=== PATIENT | female | born 1990 ===

== ENCOUNTER 2017-08-18 20:28 | Inpatient (IN) | payer MEDICAID, SELFPAY ==
[2017-08-18 20:48] VITALS: BMI 36.0
[2017-08-18 22:02] LABS: RBC URINE 3 /hpf (0-3); URINE BACTERIA OCC (<OCC); URINE BILIRUBIN NEGATIVE (NEGATIVE); URINE BLOOD MODERATE (NEGATIVE); URINE COLOR STRAW (YELLOW); URINE GLUCOSE (UA) NEG (Normal); URINE KETONE NEGATIVE (NEGATIVE); URINE LEUKOCYTE ESTERASE NEG Leu/uL (Negative); URINE PROTEIN 30 mg/dL (NEGATIVE); URINE UROBILINOGEN 0.2-1.0 mg/dL (0.2-1.0); WBC URINE 2 /hpf (0-5)
[2017-08-18 23:13] VITALS: TEMP 98.4
[2017-08-18 23:23] LABS: BASO % 0.2 % (0.0-2.0); EOS # 0.1 K/uL (0.0-0.7); HEMATOCRIT 30.9 % (34.0-47.0); LYMPH # 1.6 K/uL (1.0-4.3); LYMPH % 19.4 % (20.0-40.0); MEAN CELL VOLUME 90.9 fl (81.0-99.0); MEAN CORPUSCULAR HEMOGLOBIN 29.2 pg (27.0-31.0); MEAN CORPUSCULAR HGB CONC 32.1 g/dL (33.0-37.0); MEAN PLATELET VOLUME 9.2 fl (7.2-11.7); MONO # 0.5 K/uL (0.0-0.8); NEUT % 73.4 % (50.0-75.0); RED CELL DISTRIBUTION WIDTH 14.7 % (11.5-14.5); WHITE BLOOD COUNT 8.2 K/uL (4.8-10.8)
[2017-08-18 23:31] LABS: ALB/GLOB RATIO 1.1 (1.0-2.1); ALKALINE PHOSPHATASE 158 U/L (38-126); ALT/SGPT 44 U/L (9-52); AST/SGOT 25 U/L (14-36); BILIRUBIN,TOTAL 0.3 mg/dl (0.2-1.3); BLOOD UREA NITROGEN 11 mg/dl (7-17); CALCIUM 9.1 mg/dL (8.4-10.2); CARBON DIOXIDE 18 mmol/L (22-30); CHLORIDE 108 mmol/L (98-107); GFR AFRICAN-AMERICAN > 60; GLUCOSE,RANDOM 104 mg/dL (65-105); POTASSIUM 3.6 MMOL/L (3.6-5.0); SODIUM 136 mmol/l (132-148); TOTAL PROTEIN 6.7 G/DL (6.3-8.2); URIC ACID 5.2 mg/Dl (2.2-7.5)
--- NOTE | 2017-08-19 01:56 | OBHP ---
Datetime: 08/18/2017 21:00 IP Adm Impression: Term, intrauterine ; No Active Labor; Intact Membranes IP Adm Impression Other: Elevated BP IP Admit Plan: Admit to unit Admit Comment, IP Provider: 27 yo at 40.2 weeks GA based on LMP 11/09/16 consistent with US on , EDC 08/16/17 presents with c/o lower abdominal discomfort and pressure since since this mornin g associated with vaginal spotting around 3 pm this afternoon. Denies LOF. Reports +FM and Ctx. Last ctx felt at 3 pm. Denies nausea, vomiting, dysuria, headache, dizziness, chest pain or dyspnea. Pt is GBS negative and all her 3rd trimerster labs are negative. Pt received Rhogam on 06/11/17. [facility], has appointment tomorrow at 1 pm. [facility] records rev'd PNL: O-, rh factor neg, rpr neg, hiv neg, rubella immune, hbsag neg, gbs neg, pap neg, gc/chl neg. 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 pmhx: anemia Pshx: denies Social hx: denies EtOH, smoking cigarettes or recreational drug use. Medications: iron pills, PNV Allergies: NKDA Assessment: 27 yo -IUP @ 40.2 weeks GA - induced HTN Plan: Admit to Labor and Delivery CBC CMP Uric acid Fibrinogen Type and Screen UA Pt was seen and examined with on-call OB hospitalist Dr. Elmira Finley, PGY1 OB Hospitalist on-call. with pGY1, I saw and examined this patinet. She stated that BP was also high last week. No MCDONNELL. no visual dist. Will admit to L_D. Elevated BP and preg dicussed with pt. She understands. Discussion about IOL, medicatoins, pain management, labor, and delivey discussed. Rh neg...Rhogam if indicated Extremities - PN: Normal Abdomen - PN: Normal Lungs - PN: Normal Heart - PN: Normal Neurologic - PN: Normal HEENT - PN: Normal General - PN: Normal Presentation-Admit: Vertex FHR - Baseline A Provider: 140s Membranes, Provider: Intact Comments, ACOG Physical Exam: Pelvic exam: close cervix w/ blood tinged mucus discharge Gestation - Est Wks by US: 40.2 weeks Pool Provider: Negative IP Hx Assessment: The History has been Reviewed and is Current Vital Signs Provider: Reviewed IP Chief Complaint: Vaginal bleeding; Maternal discomfort NICHD Variability Prov Fetus A: Moderate 6-25bpm NICHD Accel Fetus A IP Provider: 15X15 FHR Category Provider Fetus A: Category I Dilatation, Provider: 0 Effacement, Provider: 0 Genitourinary Exam: Normal
[2017-08-19] MEDS: Lactated Ringer's 1,000 ML IV SCH ×4 (09:35→16:40)
[2017-08-19] MEDS ORDERED: Oxytocin 30 units/LR 500ML 30 U/500 ML BAG IV ONE ×2 (09:46→16:00)
[2017-08-19] MEDS ORDERED: Oxytocin 30 UNITS in Sodium Chloride 0.9% 500 ML IV ONE ×2 (10:00→16:15)
--- NOTE | 2017-08-19 10:59 | OBPN ---
Datetime: 08/19/2017 10:19 IP Progress Impression: Normal progression of labor IP Procedures: Sterile Vag Exam; Ultrasound IP Progress Plan: Continue present management Pool Provider: Negative Membranes, Provider: Intact FHR - Baseline A Provider: 140 Gestation - Est Wks by US: 40.3 IP Progress Note Comment: 27 y/o F at 40.2 weeks GA, -induced HTN, admitted last nigh t for IOL. Cytotec was administered. Pt examined by bedside, on nitric oxide via facial mask, reports feeling well. Pt reports uterine contractions are more frequent, 5/10 pain intensity. FM +. Pt denie s LOF, CP, SOB, visual disturbances, headache or urinary complaints. - US by bedside performed: vertex presentation verified, pt tolerated well. Physical Exam: -Gen: Pt A_O, not in acute distress. -HEENT: normocephalix, atraumatic, EOMI. -Neck good ROM. -Pelvic: No pooling appreciated. Cervical dilation of 4 cm, effacement _75%. A/P 27 y/o F with IUP at 40.3 weeks GA, -induced HTN, with adequate progression of labor. - IV fluids - LR @ 125ml/hr- started - Continue Nitric Oxide PRN. - Will continue monitoring. Case discussed with Dr Becky Wilson PGY-1 OB attending addendum: Patient seen and examined by me. Agree with above assessment and plan with following clarification s and additions. O: 110-140/70-100s I: Gestational HTN: asymtomatic Latent Phase Labor- with good cervical change. S/P Cytotec x2(25mg/ 50mg) P:Expectant VD Will begin Pit when indicated. Pt advised she may have epidural prn NICHD Accel Fetus A IP Provider: 15X15 FHR Category Provider Fetus A: Category I NICHD Variability Prov Fetus A: Moderate 6-25bpm Dilatation, Provider: 5 Effacement, Provider: 75 Datetime: 08/18/2017 21:00 Presentation-Admit: Vertex Vital Signs Provider: Reviewed NICHWilly Decel Fetus A IP Provider: None
[2017-08-19] MEDS ORDERED: Bupivacaine HCl 0.25% PF (10 ml) Inj ONE (16:42)
[2017-08-19] MEDS ORDERED: Fentanyl/Bupivacaine HCl 250 ML EPI ONE (16:42)
[2017-08-19] MEDS ORDERED: Lidocaine 1% Inj (20ml) ONE (21:49)
[2017-08-19] MEDS ORDERED: Oxycodone/Acetaminophen 5/325 mg Tab PO PRN ×2 (23:11)
[2017-08-20] MEDS ORDERED: Oxycodone/Acetaminophen 5/325 mg Tab PO PRN ×2 (00:28)
[2017-08-20 07:49] LABS: HEMATOCRIT 25.3 % (34.0-47.0); MEAN CELL VOLUME 89.1 fl (81.0-99.0); MEAN CORPUSCULAR HEMOGLOBIN 30.4 pg (27.0-31.0); MEAN CORPUSCULAR HGB CONC 34.2 g/dL (33.0-37.0); RED CELL DISTRIBUTION WIDTH 15.1 % (11.5-14.5); WHITE BLOOD COUNT 10.4 K/uL (4.8-10.8)
--- NOTE | 2017-08-20 09:10 | OBDS ---
DELIVERY PERSONNEL Delivery Doctor: Silver Thomas MD Electronic Equipment Trades Worker: Ema Darnell RN Anesthesiologist: Geoffrey Trinidad MD Resident: Malia MATERNAL INFORMATION Delivery Anesthesia: Epidural Medications in Delivery: Oxytocin 30 units in 500 mL Estimated Blood Loss (ml): 250 Placenta Cultured: No Maternal Complications: None Provider Comments: of a viable male infant from cephalic presentation over the second degree pe rineal laceration. 's head delivered in a controlled manner. No nuchal cord was no noted. Infan t was bulb suctioned at the perineum and was crying spontaneously. was placed on mother stomac h. Cord was double calmped and cut by baby's father. Placenta was delived intact and spontanously w/ gentle cord tract and uterine massage. 3 vessel co rds were noted. IV fluids 1L plus Pitochin 20 units started immediately w/ delivery of placenta. Midl ine second degree perineal laceration was repaired with 2-0 and 3-0 vicryl. Cervix and vaginal inspec all for lacerations and non were noted. Male infants wt 9 lbs 2 oz and scores were 9/9. EBL 250 cc. LABOR SUMMARY EDC: 08/16/2017 00:00 No. Babies in Womb: 1 Attempted: No Labor Anesthesia: Epidural LABOR INFORMATION Reason for Induction: Gest. HTN/PreEclampsia/Eclampsia Onset of Labor: 08/19/2017 16:00 Complete Dilatation: 08/19/2017 21:00 Cervical Ripening Agents: Cytotec @ (Annotations: 50 mcg as per md order ) Oxytocin: Induction Group B Beta Strep: Negative Steroids Given: None Reason Steroids Not Administered: Not Applicable MEMBRANES Membranes Rupture Method: Spontaneous Rupture of Membranes: 08/19/2017 19:35 Length of Rupture (hrs): 2.78 Amniotic Fluid Color: Clear Amniotic Fluid Amount: Small Amniotic Fluid Odor: Normal STAGES OF LABOR Stage 1 hrs: 5 Stage 1 min: 0 Stage 2 hrs: 1 Stage 2 min: 22 Stage 3 hrs: 0 Stage 3 min: 11 Total Time in Labor hrs: 6 Total Time in Labor min: 33 VAGINAL DELIVERY Episiotomy: None Laceration Extension: Second Degree Laceration Type: Perineal Laceration Repair: Yes Laceration Repair Note: 2-0 and 3-0 vicryl Initial Vag Sponge Count: 5 Final Vag Sponge Count: 5 Initial Vag Sharps Count: 2 Final Vag Sharps Count: 2 Sponge Count Correct: Yes Sharps Count Correct: Yes BABY A INFORMATION Delivery Date/Time: 08/19/2017 22:22 Method of Delivery: Vaginal Born in Route : No : N/A Forceps: N/A Vacuum Extraction: N/A Shoulder Dystocia : No SHOULDER DYSTOCIA BABY A Delivery Date/Time: 08/19/2017 22:22 PRESENTATION/POSITION BABY A Presentation: Cephalic Cephalic Presentation: Vertex PLACENTA INFORMATION BABY A Placenta Delivery Time : 08/19/2017 22:33 Placenta Method of Delivery: Spontaneous Placenta Status: Delivered SCORES BABY A Heart Rate 1 min: >100 bpm Resp Effort 1 min: Good Cry Reflex Irritability 1 min: Cough or Sneeze or Pulls Away Muscle Tone 1 min: Active Motion Color 1 min: Body Morton, Extremities Blue SCORE 1 MIN: 9 Heart Rate 5 min: >100 bpm Resp Effort 5 min: Good Cry Reflex Irritability 5 min: Cough or Sneeze or Pulls Away Muscle Tone 5 min: Active Motion Color 5 min: Body Morton, Extremities Blue SCORE 5 MIN: 9 INFORMATION BABY A Gestational Age at Delivery: 41.2 Gestational Status: Term Infant Outcome : Liveborn Condition : Stable Sex: Male IDENTIFICATION/MEDS BABY A ID Band Number: [id number] ID Band Location: Left Leg; Left Arm WEIGHT/LENGTH BABY A Infant Birthweight (gms): 4145 Weight (lb): 9 Weight (oz): 2 CORD INFORMATION BABY A No. Cord Vessels: 3 Nuchal Cord : N/A Cord Blood Taken: Yes Suction: Mouth; Nose
--- NOTE | 2017-08-20 09:21 | OBPPN ---
Datetime: 08/20/2017 07:29 PP Pain Prov: Within normal limits PP Nausea Prov: Denies PP Flatus Prov: Yes PP BM Prov: No PP Heart Prov: Normal PP Lungs Prov: Normal PP Abdomen/Uterus Prov: Normal PP Lochia Prov: Normal PP Vulva/Perineum Prov: Normal PP CVA Tenderness Prov: Normal PP Extremities Prov: Normal PP Impression Prov: Normal progression PP Plan Prov: Continue present management PP Progress Note Prov: PPD #1 27 y/o now seen and examined at bedside this morning. No overnight events. Reports pain is c ontrolled with pain medications. Voiding freely w/ tinged blood noted.Pt reports passing gas per rect um but no BM yet. Ambulating well w/o dizziness. Lochia is similar to menses volume. Pt is breastfeed ing/bottle feeding w/o difficulty. Denies nausea, vomiting, fever, chills, chest pain or calf pain. Physical Exam: General: A_O, resting comfortably in bed, NAD HEENT: oral mucosa moist. Lungs: CTA B/L, no wheezing, rhonchi or rales CVS: RRR, S1, S2 ABD: ND, +BS, firm fundus @ umbilical level. Soft, appropriate TTP. EXT: no edema, negative Clemente's sign, Neuro/psych: AAOX3. assessment: 27 y/o now doing well on PDD 1 Plan: OOB w/ caution Regular diet Percocet and Ibuprofen for pain management Encourage and ambulatory Anticipate discharge tomorrow Sultan Finley, PGY1 The patient was seen with the resident I agree with note
--- NOTE | 2017-08-21 10:14 | OBPPN ---
Datetime: 08/21/2017 06:57 PP Pain Prov: Within normal limits PP Nausea Prov: Denies PP Flatus Prov: Yes PP BM Prov: Yes PP Heart Prov: Normal PP Lungs Prov: Normal PP Abdomen/Uterus Prov: Normal PP Lochia Prov: Normal PP Vulva/Perineum Prov: Normal PP CVA Tenderness Prov: Normal PP Extremities Prov: Normal PP Impression Prov: Normal progression PP Plan Prov: Discharge PP Progress Note Prov: PPD #2 27 y/o now seen and examined at bedside this morning. No overnight events. Ambulating well w /o dizziness. Reports pain is controlled with pain medications. Voiding freely w/o blood noted.Pt [place] d BM last night. Lochia is similar to menses volume. Pt is /bottle feeding w/o difficult y. Denies dyspnea, chest pain, dizziness, blurry vision, nausea, vomiting, fever, chills,or calf pain . Physical Exam: General: A_O, resting comfortably in bed, NAD HEENT: oral mucosa moist. Lungs: CTA B/L, no wheezing, rhonchi or rales CVS: RRR, S1, S2 ABD: ND, +BS, firm fundus @ umbilical level. Soft, appropriate TTP. EXT: no edema, negative Clemente's sign Neuro/psych: AAOX3. Assessment: 27 y/o now doing well on PDD 2 Anemia Plan: Discharge to home today PNV 1 PO qdaily Ibuprofen 600 mg 1 tab po q6h prn for moderate/severe pain Feosol 325 mg PO bid Senokot 8.6mg tabs po qhs. Encourage . Ambulation with caution,nothing per vaginal, no heavy lifting. Go to ER if excessive bleeding or experiencing fever, increased perineal or abdominal pain, breast problems or leg pain and swelling. Follow up at your clinic in 4-6 weeks. Sultan Finley, PGY1 Attending addendum: I saw and examined the patient at bedside this morning. I reviewed the resident note above and agr ee with findings and management. DC home today. f/u [facility] in 4-6wks. Jazmyne Anthony MD Vital Signs Provider PP: Reviewed; Within Normal Limits
--- NOTE | 2017-08-21 10:14 | OBDCSUM ---
Datetime: 08/21/2017 07:02 Discharged to, Provider: Home Follow up at, Provider: [facility] Disch Instr Activity: Normal activity Disch Instr Diet: Regular Discharge Instructions, Provider: Routine instructions given Discharge Diagnosis, Provider: Term Delivered Discharge Time: 08/21/2017 12:00 Follow up in weeks, Provider: Follow up with Jayleen Watts as discussed in 6-10 days Disch Referrals: None Contraception discussed, Prov: Yes Disch Activity Restrictions: No lifting; No sexual activity; Nothing in vagina - [place], tampon s, douche Discharge Comment, Provider: Take vitamin 1 tablet daily Take Ibuprofen 600 mg 1 tab every 6 hours as needed for for moderate/severe pain Take Feosol 325 mg two times daily. Take Senokot 8.6mg tabs at night Go to ER if excessive bleeding or experiencing fever, increased perineal or abdominal pain, breast problems or leg pain and swelling. Follow up with Jayleen Watts APN as discussed in 6-10 days. Attending addendum: I saw and examined the patient at bedside this morning. I reviewed the resident note above and agr ee with findings and management. DC home today. f/u [facility] in 4-6wks. Jazmyne Anthony MD Contraception after Delivery: Control Pill/Patch
[2017-08-22 21:12] VITALS: BP 122/78; PULSE 100; RESP 20; O2SAT 100
== END 2017-08-21 10:55 | disposition home or self-care (01) | DRG 775 ==
LOC: H.EROB2 20:28 → H.L&D 21:36 → H.OB/GYN 08-20 00:45
PROVIDERS: ADMIT Obstetrics & Gynecology; ATTEND Obstetrics & Gynecology
PROC: 4A1HXCZ Monitoring of Products of Conception, Cardiac Rate, External Approach (ICD-10-PCS; 2017-08-18)
PROC: 10E0XZZ Delivery of Products of Conception, External Approach (ICD-10-PCS; principal; 2017-08-19)
PROC: 0KQM0ZZ Repair Perineum Muscle, Open Approach (ICD-10-PCS; 2017-08-19)
PROC: 3E0P7VZ Introduction of Hormone into Female Reproductive, Via Natural or Artificial Opening (ICD-10-PCS; 2017-08-19)
PROC: 30233S1 Transfusion of Nonautologous Globulin into Peripheral Vein, Percutaneous Approach (ICD-10-PCS; 2017-08-20)
DX: O13.4 Gestational [pregnancy-induced] hypertension without significant proteinuria, complicating childbirth (principal); O36.0930 Maternal care for other rhesus isoimmunization, third trimester, not applicable or unspecified; D64.9 Anemia, unspecified; O99.02 Anemia complicating childbirth; O70.1 Second degree perineal laceration during delivery; O48.0 Post-term pregnancy; Z37.0 Single live birth; Z3A.40 40 weeks gestation of pregnancy

== ENCOUNTER 2019-01-12 15:44 | Emergency (ER) | payer MEDICAID ==
[2019-01-12 15:59] VITALS: BMI 34.7
[2019-01-12] MEDS: Lactated Ringer's 1,000 ML IV SCH ×2 (17:10→18:15)
--- NOTE | 2019-01-12 20:01 | OBDCSUM ---
Datetime: 01/12/2019 18:45 Discharged to, Provider: Home Follow up at, Provider: [facility] Disch Instr Activity: Normal activity Disch Instr Diet: Regular Discharge Diagnosis, Provider: David Labor - Undelivered Discharge Time: 01/05/2019 18:45 Follow up in weeks, Provider: 01/14/19 Disch Referrals: None
--- NOTE | 2019-01-12 20:01 | OBHP ---
Datetime: 01/12/2019 16:30 IP Adm Impression: Term, intrauterine ; No Active Labor; Intact Membranes IP Chief Complaint Other: prolonged monitoring IP Admit Plan: Observation/Evaluation Admit Comment, IP Provider: 28 YO with IUP at EGA 37.5 wks, EDC 01/28/19, sent for eval and m onitoring from after baby found with recurrent variables and tachycardia on NST. Patient denies VB , CONTX, and LOF. Patient endorses +FM, sates she is feeling well. Denies MCDONNELL, CP, SOB, N/V, dysuria, fever or other complaint at present. ROS: negative, except as per HPI. OBGYN: 1st term 2017 . During current anemia. PMH: Obesity FMH: Denies PSH: denies Medications: PNV Allergies: DEnies Social: Denies tobacco, alcohol or drug use in this labs: RPR/HIV non-reactive, negative, GBS negative. CL/GN neg A/P 28 YO with IUP at EGA 37.5 wks, EDC 01/28/19, sent for eval and monitoring from after ba by found with recurrent variables and tachycardia on NST. PLAN: -FHR monitoring: reassuring -IVF LR 2000 ml blus -Plan to DC home Case discussed with attending Dr Elmira Edwards MD PGY1 OB Hospitalist on-call. Pt seen and examined. Agree with note. IVF and monitor FHR. If reactiv e/improves, will dischare home and [facility] later this week Pelvic Type - PN: Not Done Extremities - PN: Normal Abdomen - PN: Normal Breast - PN: Not Done Lungs - PN: Normal Heart - PN: Normal Thyroid - PN: Not Done Neurologic - PN: Not Done HEENT - PN: Normal General - PN: Normal FHR - Baseline A Provider: 170 Comments, ACOG Physical Exam: see note IP Hx Assessment: The History has been Reviewed and is Current IP Chief Complaint: Other NICHD Variability Prov Fetus A: Moderate 6-25bpm NICHD Accel Fetus A IP Provider: 15X15 NICHD Decel Fetus A IP Provider: None Genitourinary Exam: Not Done
[2019-01-12 22:58] VITALS: PULSE 80
== END 2019-01-12 18:35 | disposition home or self-care (01) ==
LOC: H.EROB2 15:44
DX: O76 Abnormality in fetal heart rate and rhythm complicating labor and delivery (principal); Z3A.37 37 weeks gestation of pregnancy
CPT/HCPCS: 99283; J7120

== ENCOUNTER 2019-02-01 15:24 | Emergency (ER) | payer MEDICAID ==
[2019-02-01 15:30] VITALS: BMI 35.6
--- NOTE | 2019-02-01 17:49 | US ---
Date of service: 02/01/2019 PROCEDURE: OB Pelvic Ultrasound HISTORY: non-reactive NST COMPARISON: None available. FINDINGS: UTERUS: Gestational sac: Single intrauterine gestation. Heart rate: 168 bpm. age (Ultrasound estimated): 40 weeks 4 days [place]-gestational hemorrhage: None. Date of delivery (Ultrasound estimated) : 01/28/2019 Placenta is seen at the uterine fundus. Amniotic fluid index 16.66 centimeter. Presentation is cephalic. CERVIX: Measures 3 cm. Long and closed. No cervical abnormality seen. RIGHT OVARY: Was not visualized LEFT OVARY: Was not visualized FREE FLUID: None. OTHER FINDINGS: Biophysical profile is 8/8 IMPRESSION: single intrauterine live noted at cephalic presentation with the estimated gestational age of 40 weeks 4 days. Placenta is seen at the uterine fundus. Amniotic fluid index 16.66 centimeter. Biophysical profile is 8/8.
--- NOTE | 2019-02-01 19:59 | OBHP ---
Datetime: 02/01/2019 15:30 IP Adm Impression: Term, intrauterine IP Chief Complaint Other: non reactive NST IP Admit Plan: Observation/Evaluation; Discharge home Admit Comment, IP Provider: 28 y/o female at 40.4 wk GA based on U/S LUZMA 01/28/19 sent by [facility] for prolonged monitoring due to non-reactive NST. Patient denies contractions, vaginal fluid loss, v aginal bleeding. Endorses movement. She denies n/v/fevers/CP/SOB/urinary sx. OB: [facility] OBhx: x1 in 2017, term, 9 lbs 2 oz Pmhx: denies HomeRx: vitamins Allergies: NKDA Famhx: denies SocialHx: denies toxic habits SurgeryHx: denies ROS: all systems reviewed and negative except per HPI Physical Exam: Gen: no acute distress Heart: S1 S2 present, RRR Lungs: normal respiratory effort. Clear to auscultation bilaterally Abd: Obese, gravid, normal BS, soft non-tender Extremities: no calf tenderness/erythema Psych: appropriate mood, no depression, good eye contact Assessment and Plan 28 y/o female at 40.4 wk GA IUP w/ nonreactive NST at [facility] labs reviewed: GBS neg, HIV neg, RPR neg, GC/C neg, HBsAg neg, Rubella immune Biophysical profile ordered [place] and NST monitoring Patient is scheduled for IOL on 02/03/2019 Case discussed w/ attending, Dr. Bailee Pat, pgyi OB Hospitalist Addendum: Pt seen by me. Agree w/ above. 28 yo at 40+4 wks sen from the office for nonreactice nonstress test, now w/ BPP 8/8 and FHT that is reactive. Pt reports good fet al movement. Pt discharged home w/ labor precautions. Pt has a scheduled induction on Fri., 019 at 7 pm. (ES) Pelvic Type - PN: Not Done Extremities - PN: Normal Abdomen - PN: Normal Back - PN: Not Done Breast - PN: Not Done Lungs - PN: Normal Heart - PN: Normal Thyroid - PN: Not Done Neurologic - PN: Not Done HEENT - PN: Not Done General - PN: Normal FHR - Baseline A Provider: 140 Contraction Comments Provider: none Gestation - Est Wks by US: 40.6 IP Hx Assessment: The History has been Reviewed and is Current EGA AdmitDate IP: 40.4 Vital Signs Provider: Reviewed; Within Normal Limits IP Chief Complaint: Other NICHD Variability Prov Fetus A: Moderate 6-25bpm NICHD Accel Fetus A IP Provider: 15X15 FHR Category Provider Fetus A: Category I NICHD Decel Fetus A IP Provider: None Genitourinary Exam: Not Done DTRs - PN: Not Done
--- NOTE | 2019-02-01 20:03 | OBDCSUM ---
Datetime: 02/01/2019 19:32 Discharged to, Provider: Home Follow up at, Provider: [facility] Disch Instr Activity: Normal activity Disch Instr Diet: Regular Discharge Time: 02/01/2019 19:32 Follow up in weeks, Provider: 02/03/2019 AT 7PM FOR INDUCTION OF LABOR Disch Referrals: None Disch Activity Restrictions: No lifting; Minimize stair-climbing Discharge Diagnosis Prov Other: Post-dates testing at 40+4 wks
[2019-02-02 00:24] VITALS: BP 127/72; PULSE 86; O2SAT 99
== END 2019-02-01 19:40 | disposition home or self-care (01) ==
LOC: H.EROB2 15:24
DX: O76 Abnormality in fetal heart rate and rhythm complicating labor and delivery (principal); Z3A.40 40 weeks gestation of pregnancy; O48.0 Post-term pregnancy

== ENCOUNTER 2019-02-03 19:13 | Inpatient (IN) | payer MEDICAID ==
[2019-02-03 19:24] VITALS: BMI 36.2
[2019-02-03] MEDS ORDERED: Lactated Ringer's 1,000 ML IV ONE (19:24)
[2019-02-03 20:18] LABS: BASO % 0.3 % (0.0-2.0); EOS # 0.1 K/uL (0.0-0.7); EOS % 1.2 % (0.0-4.0); HEMOGLOBIN 9.9 g/dL (12.0-16.0); LYMPH # 1.5 K/uL (1.0-4.3); LYMPH % 19.4 % (20.0-40.0); MEAN CELL VOLUME 88.5 fl (81.0-99.0); MEAN CORPUSCULAR HEMOGLOBIN 29.2 pg (27.0-31.0); MEAN PLATELET VOLUME 9.4 fl (7.2-11.7); MONO # 0.4 K/uL (0.0-0.8); MONO % 5.7 % (0.0-10.0); NEUT # 5.5 K/uL (1.8-7.0); NEUT % 73.4 % (50.0-75.0); RBC 3.4 Mil/uL (3.80-5.20); RED CELL DISTRIBUTION WIDTH 15.9 % (11.5-14.5); WHITE BLOOD COUNT 7.6 K/uL (4.8-10.8)
[2019-02-04] MEDS: Lactated Ringer's 1,000 ML IV SCH ×2 (01:08→10:00)
[2019-02-04 04:45] VITALS: BP 122/82; O2SAT 100
--- NOTE | 2019-02-04 07:25 | OBADHP ---
Datetime: 02/03/2019 19:45 Admit Comment, IP Provider: 28 y/o 41.0 wks based on US LUZMA 01/28/19 presents to L_D for IOL. Niels tavera denies contractions, vaginal fluid loss, vaginal bleeding. Endorses movement. She denies n/v/fevers/CP/SOB/urinary sx. OB: CF, Dr. Grover OBhx: x1 in 2017, term, 9 lbs 2 oz, LGA, H/O GHTN Pmhx: denies HomeRx: vitamins, Fesol Allergies: NKDA Famhx: denies SocialHx: denies toxic habits SurgeryHx: denies ROS: all systems reviewed and negative except per HPI Physical Exam: Gen: no acute distress Heart: S1 S2 present, RRR Lungs: normal respiratory effort. Clear to auscultation bilaterally Abd: Obese, gravid, normal BS, soft non-tender Extremities: no calf tenderness/erythema SVE: Fingertip/high Psych: appropriate mood, no depression, good eye contact Assessment and Plan 28 y/o 41.0 wks based on US LUZMA 01/28/19 presents to L_D for IOL. labs reviewed: GBS neg, HIV neg, RPR neg, GC/C neg, HBsAg neg, Rubella immune - [place] and NST monitoring - Start with Cervidil 10 mg vag - LR - CBC, T_S - Anesthesia consult for epidural Case discussed with Dr. Juárez and Dr. Cr Chen, PGY1 Patient was seen with the resident I agree with the note Pelvic Type - PN: Adequate Extremities - PN: Not Done Abdomen - PN: Normal Back - PN: Normal Breast - PN: Not Done Lungs - PN: Normal Heart - PN: Normal Thyroid - PN: Not Done Neurologic - PN: Not Done HEENT - PN: Normal General - PN: Normal Presentation-Admit: Vertex FHR - Baseline A Provider: 150 Membranes, Provider: Intact Contraction Comments Provider: None IP Hx Assessment: The History has been Reviewed and is Current Vital Signs Provider: Reviewed; Within Normal Limits IP Chief Complaint: Scheduled induction of labor NICHD Variability Prov Fetus A: Moderate 6-25bpm NICHD Accel Fetus A IP Provider: 15X15 FHR Category Provider Fetus A: Category I NICHD Decel Fetus A IP Provider: None Dilatation, Provider: Fingertip Effacement, Provider: thick Station, Provider: High Genitourinary Exam: Normal DTRs - PN: Normal EGA AdmitDate IP: 40.6 IP Adm Impression: Term, intrauterine IP Admit Plan: Admit to unit; Initiate labor protocol Datetime: 02/01/2019 15:30 IP Chief Complaint Other: non reactive NST Gestation - Est Wks by US: 40.6 Datetime: 01/12/2019 16:30 Comments, ACOG Physical Exam: see note
[2019-02-04] MEDS ORDERED: Lidocaine 1% Inj (20ml) ONE (09:52)
[2019-02-04] MEDS ORDERED: Oxytocin 30 UNIT in NS 500 ml 30 UNITS/500 ML BAG IV ONE (12:33)
[2019-02-04] MEDS ORDERED: OXYTOCIN/0.9 % NS 20 UNIT/1,000 ML BAG IV ONE (12:33)
[2019-02-04] MEDS ORDERED: Bupivacaine HCl 0.5% PF (30 ml) Inj ONE (12:40)
[2019-02-04] MEDS ORDERED: Fentanyl/Bupivacaine HCl 250 ML EPI ONE (12:58)
--- NOTE | 2019-02-04 16:34 | OBPN ---
Datetime: 02/04/2019 16:29 IP Procedures: Artificial ROM; Sterile Vag Exam IP Progress Plan: Continue present management Membranes, Provider: Ruptured Amniotic Fluid Color, Provider: Meconium Contraction Comments Provider: q4-5min FHR - Baseline A Provider: 140s-150s IP Progress Note Comment: Patient comfortable status post epidural. AROM meconium fluid. hea rt tracing category 1. Plan to continue current management. Discussed plan with patient and all pat ient questions answered. Vital Signs Provider: Reviewed; Within Normal Limits NICHD Accel Fetus A IP Provider: 15X15 FHR Category Provider Fetus A: Category I NICHD Variability Prov Fetus A: Moderate 6-25bpm Dilatation, Provider: 7 Effacement, Provider: 100 Station, Provider: -1 NICHD Decel Fetus A IP Provider: None Datetime: 02/03/2019 19:45 Presentation-Admit: Vertex Datetime: 02/01/2019 15:30 Gestation - Est Wks by US: 40.6
--- NOTE | 2019-02-04 20:15 | OBPN ---
Datetime: 02/04/2019 20:09 IP Procedures: Sterile Vag Exam IP Progress Plan: Continue present management Contraction Comments Provider: q3min FHR - Baseline A Provider: 150s IP Progress Note Comment: Patient to begin pushing. heart tracing category 1. Discussed plan with patient and all patient questions answered. Vital Signs Provider: Reviewed; Within Normal Limits NICHD Accel Fetus A IP Provider: 15X15 FHR Category Provider Fetus A: Category I NICHD Variability Prov Fetus A: Moderate 6-25bpm Dilatation, Provider: 10 Effacement, Provider: 100 Station, Provider: 0 NICHD Decel Fetus A IP Provider: None
[2019-02-04] MEDS ORDERED: Oxycodone/Acetaminophen 5/325 mg Tab PO PRN ×2 (22:32)
[2019-02-05 05:33] LABS: BASO % 0.2 % (0.0-2.0); EOS # 0.1 K/uL (0.0-0.7); EOS % 0.7 % (0.0-4.0); HEMOGLOBIN 8.7 g/dL (12.0-16.0); LYMPH # 1.5 K/uL (1.0-4.3); LYMPH % 14.6 % (20.0-40.0); MEAN CELL VOLUME 88.7 fl (81.0-99.0); MEAN CORPUSCULAR HEMOGLOBIN 29.2 pg (27.0-31.0); MEAN CORPUSCULAR HGB CONC 32.9 g/dL (33.0-37.0); MEAN PLATELET VOLUME 9.1 fl (7.2-11.7); MONO # 0.6 K/uL (0.0-0.8); NEUT % 78.5 % (50.0-75.0); RBC 2.96 Mil/uL (3.80-5.20); WHITE BLOOD COUNT 10.2 K/uL (4.8-10.8)
--- NOTE | 2019-02-05 08:27 | OBPPN ---
Datetime: 02/05/2019 05:53 PP Pain Prov: Within normal limits PP Nausea Prov: Denies PP Flatus Prov: Yes PP BM Prov: No PP Breasts Prov: Not Done PP Heart Prov: Normal PP Lungs Prov: Normal PP Abdomen/Uterus Prov: Normal PP Lochia Prov: Normal PP Vulva/Perineum Prov: Normal PP CVA Tenderness Prov: Normal PP Extremities Prov: Normal PP C/S Incision Prov: Not Applicable PP Progress Prov: Normal PP Impression Prov: Normal progression PP Plan Prov: Continue present management PP Progress Note Prov: 28 y/o , S/P on PPD1 Patient seen and evaluated at bedside in AM. Pain well controlled with pain medicaitons. Toleratin g regular diet well w/o nuasea and vomiting. Lochia like menses. Passing flatus but no BM yet. Breast feeding w/o difficulties. Denies F/C/N/V/D. Ambulating to bathroom. Denies any other complains at thi s time. VSS Gen: NAD Chest: RRR, S1S2 present Lungs: CTAB Abdomen: Soft, NT, ND, BS+ Ext: No pedal edema Neuro: AAO x 3, Normal mood and affact. A/P: 28 y/o , S/P on PPD1 - Pain control with pain meds - Colace BID - Encourage - Encourage ambulation - COntinue present Mx - Anticipated D/C on 02/06/19 Case discussed with Attending Helio Chen, PGY1 Attending addendum: I saw and exmined the patient at bedside myself this morning. I reviewed the resident note and agr ee with findings and management. Patient is rh neg and baby is rh neg. Anticipate DC home tomorrow. Jazmyne Anthony MD Vital Signs Provider PP: Reviewed; Within Normal Limits
--- NOTE | 2019-02-05 08:56 | OBDS ---
DELIVERY PERSONNEL Delivery Doctor: Marcin Browning MD Pole Sander Operator: Shaji Alaniz RN Anesthesiologist: Dr. Frazier MATERNAL INFORMATION Delivery Anesthesia: Epidural Medications in Delivery: Pitocin Placenta Cultured: No Maternal Complications: None Provider Comments: Normal spontaneous vaginal delivery. Patient delivered viable infant with Apgars of 9 and 9 at 1 and 5 minutes respectively. de livered via LOP position. Placenta delivered spontaneously. No lacerations, perineum intact. Uteru s firm and appropriate hemostatic following delivery. Patient tolerated delivery well. No complicat ions. Estimated blood loss 300 cc. LABOR SUMMARY EDC: 01/28/2019 00:00 No. Babies in Womb: `1 Attempted: No Labor Anesthesia: Epidural LABOR INFORMATION Reason for Induction: Postterm Onset of Labor: 02/04/2019 10:00 Complete Dilatation: 02/04/2019 20:07 Cervical Ripening Agents: Cervidil Oxytocin: N/A Group B Beta Strep: Negative Antibiotics # of Doses: 0 Steroids Given: None Reason Steroids Not Administered: Not Applicable MEMBRANES Membranes Rupture Method: Artificial Rupture of Membranes: 02/04/2019 16:00 Length of Rupture (hrs): 5.33 Amniotic Fluid Color: Light Meconium Amniotic Fluid Amount: Small Amniotic Fluid Odor: Normal STAGES OF LABOR Stage 1 hrs: 10 Stage 1 min: 7 Stage 2 hrs: 1 Stage 2 min: 13 Stage 3 hrs: 0 Stage 3 min: 5 Total Time in Labor hrs: 11 Total Time in Labor min: 25 VAGINAL DELIVERY Episiotomy: None Laceration Extension: N/A Laceration Type: None Laceration Repair: Not Applicable Initial Vag Sponge Count: 15 Final Vag Sponge Count: 15 Initial Vag Sharps Count: 0 Final Vag Sharps Count: 0 Sponge Count Correct: Yes Sharps Count Correct: N/A CSECTION DELIVERY CSection Incision: N/A BABY A INFORMATION Delivery Date/Time: 02/04/2019 21:20 Method of Delivery: Vaginal Born in Route : No : N/A Forceps: N/A Vacuum Extraction: N/A Shoulder Dystocia : No SHOULDER DYSTOCIA BABY A Delivery Date/Time: 02/04/2019 21:20 PRESENTATION/POSITION BABY A Presentation: Cephalic Cephalic Presentation: Vertex Vertex Position: Left Occipital Posterior Breech Presentation: N/A PLACENTA INFORMATION BABY A Placenta Delivery Time : 02/04/2019 21:25 Placenta Method of Delivery: Spontaneous Placenta Status: Delivered SCORES BABY A Heart Rate 1 min: >100 bpm Resp Effort 1 min: Good Cry Reflex Irritability 1 min: Cough or Sneeze or Pulls Away Muscle Tone 1 min: Active Motion Color 1 min: Body [place], Extremities Blue Resuscitation Effort 1 min: N/A SCORE 1 MIN: 9 Heart Rate 5 min: >100 bpm Resp Effort 5 min: Good Cry Reflex Irritability 5 min: Cough or Sneeze or Pulls Away Muscle Tone 5 min: Active Motion Color 5 min: Body [place], Extremities Blue Resuscitation Effort 5 min: N/A SCORE 5 MIN: 9 INFORMATION BABY A Gestational Age at Delivery: 41.0 Gestational Status: Post-term Outcome : Liveborn Infant Condition : Stable Sex: Female IDENTIFICATION/MEDS BABY A ID Band Number: [id number] ID Band Location: Left Leg; Left Arm WEIGHT/LENGTH BABY A Birthweight (gms): 3540 Infant Weight (lb): 7 Weight (oz): 13 CORD INFORMATION BABY A No. Cord Vessels: 3 Nuchal Cord : N/A Suction: Mouth; Nose
--- NOTE | 2019-02-05 09:03 | OBDS ---
DELIVERY PERSONNEL Delivery Doctor: Marcin Browning MD Geodetic Surveyor: Shaji Alaniz RN Anesthesiologist: Dr. Frazier MATERNAL INFORMATION Delivery Anesthesia: Epidural Medications in Delivery: Pitocin Placenta Cultured: No Maternal Complications: None Provider Comments: Normal spontaneous vaginal delivery. Patient delivered viable infant with Apgars of 9 and 9 at 1 and 5 minutes respectively. de livered via LOP position. Placenta delivered spontaneously. No lacerations, perineum intact. Uteru s firm and appropriate hemostatic following delivery. Patient tolerated delivery well. No complicat ions. Estimated blood loss 300 cc. LABOR SUMMARY EDC: 01/28/2019 00:00 EDC: 01/27/2019 00:00 No. Babies in Womb: `1 Attempted: No Labor Anesthesia: Epidural LABOR INFORMATION Reason for Induction: Postterm Onset of Labor: 02/04/2019 10:00 Complete Dilatation: 02/04/2019 20:07 Cervical Ripening Agents: Cervidil Oxytocin: N/A Group B Beta Strep: Negative Group B Beta Strep: Negative Antibiotics # of Doses: 0 Steroids Given: None Reason Steroids Not Administered: Not Applicable MEMBRANES Membranes Rupture Method: Artificial Rupture of Membranes: 02/04/2019 16:00 Length of Rupture (hrs): 5.33 Amniotic Fluid Color: Light Meconium Amniotic Fluid Amount: Small Amniotic Fluid Odor: Normal STAGES OF LABOR Stage 1 hrs: 10 Stage 1 min: 7 Stage 2 hrs: 1 Stage 2 min: 13 Stage 3 hrs: 0 Stage 3 min: 5 Total Time in Labor hrs: 11 Total Time in Labor min: 25 VAGINAL DELIVERY Episiotomy: None Laceration Extension: N/A Laceration Type: None Laceration Repair: Not Applicable Initial Vag Sponge Count: 15 Final Vag Sponge Count: 15 Initial Vag Sharps Count: 0 Final Vag Sharps Count: 0 Sponge Count Correct: Yes Sharps Count Correct: N/A CSECTION DELIVERY CSection Incision: N/A BABY A INFORMATION Infant Delivery Date/Time: 02/04/2019 21:20 Method of Delivery: Vaginal Method of Delivery: Vaginal Born in Route : No : N/A Forceps: N/A Vacuum Extraction: N/A Shoulder Dystocia : No SHOULDER DYSTOCIA BABY A Infant Delivery Date/Time: 02/04/2019 21:20 PRESENTATION/POSITION BABY A Presentation: Cephalic Cephalic Presentation: Vertex Vertex Position: Left Occipital Posterior Breech Presentation: N/A PLACENTA INFORMATION BABY A Placenta Delivery Time : 02/04/2019 21:25 Placenta Method of Delivery: Spontaneous Placenta Status: Delivered SCORES BABY A Heart Rate 1 min: >100 bpm Resp Effort 1 min: Good Cry Reflex Irritability 1 min: Cough or Sneeze or Pulls Away Muscle Tone 1 min: Active Motion Color 1 min: Body [place], Extremities Blue Resuscitation Effort 1 min: N/A SCORE 1 MIN: 9 Heart Rate 5 min: >100 bpm Resp Effort 5 min: Good Cry Reflex Irritability 5 min: Cough or Sneeze or Pulls Away Muscle Tone 5 min: Active Motion Color 5 min: Body [place], Extremities Blue Resuscitation Effort 5 min: N/A SCORE 5 MIN: 9 INFANT INFORMATION BABY A Gestational Age at Delivery: 41.0 Gestational Status: Post-term Infant Outcome : Liveborn Infant Condition : Stable Infant Sex: Female Infant Sex: Female IDENTIFICATION/MEDS BABY A ID Band Number: [id number] ID Band Location: Left Leg; Left Arm WEIGHT/LENGTH BABY A Infant Birthweight (gms): 3540 Infant Weight (lb): 7 Infant Weight (oz): 13 CORD INFORMATION BABY A No. Cord Vessels: 3 Nuchal Cord : N/A Suction: Mouth; Nose
[2019-02-05] MEDS: Lactated Ringer's 1,000 ML IV SCH (09:45)
--- NOTE | 2019-02-06 08:31 | OBPPN ---
Datetime: 02/06/2019 06:40 PP Pain Prov: Within normal limits PP Nausea Prov: Denies PP Flatus Prov: Yes PP BM Prov: No PP Breasts Prov: Not Done PP Heart Prov: Normal PP Lungs Prov: Normal PP Abdomen/Uterus Prov: Normal PP Lochia Prov: Normal PP Vulva/Perineum Prov: Normal PP CVA Tenderness Prov: Normal PP Extremities Prov: Normal PP C/S Incision Prov: Normal PP Progress Prov: Normal PP Impression Prov: Normal progression PP Plan Prov: Continue present management PP Progress Note Prov: 28 y/o , S/P on PPD2 Patient seen and evaluated at bedside in AM. Pain well controlled with pain medicaitons. Toleratin g regular diet well w/o nuasea and vomiting. Lochia like menses. Passing flatus but no BM yet. Breast feeding w/o difficulties. Denies F/C/N/V/D. Ambulating well w/o difficulties. Denies any other compla ins at this time. Mother and baby are Rh Negative. VSS Gen: NAD Chest: RRR, S1S2 present Lungs: CTAB Abdomen: Soft, NT, ND, BS+ Ext: No pedal edema Neuro: AAO x 3, Normal mood and affact. A/P: 28 y/o , S/P on PPD2 - Pain control with pain meds - Colace BID - Encourage - Encourage ambulation - COntinue present Mx - Anticipated D/C on 02/06/19 Case discussed with Attending Helio Chen, PGY1 OB Hospitalist Addendum: Pt seen and examined by me. Agree w/ above. PPD 2 s/p , doing well, breast feeding. Discharge home today. (ES) Vital Signs Provider PP: Reviewed; Within Normal Limits
[2019-02-06 20:18] VITALS: PULSE 89; RESP 20; TEMP 98.4
== END 2019-02-06 14:50 | disposition home or self-care (01) | DRG 373 ==
LOC: H.L&D 19:24 → H.OB/GYN 02-04 23:50
PROVIDERS: ADMIT Obstetrics & Gynecology Gynecology; ATTEND Obstetrics & Gynecology Gynecology
PROC: 4A1HXCZ Monitoring of Products of Conception, Cardiac Rate, External Approach (ICD-10-PCS; 2019-02-03)
PROC: 10E0XZZ Delivery of Products of Conception, External Approach (ICD-10-PCS; principal; 2019-02-04)
PROC: 3E0P7VZ Introduction of Hormone into Female Reproductive, Via Natural or Artificial Opening (ICD-10-PCS; 2019-02-04)
PROC: 10907ZC Drainage of Amniotic Fluid, Therapeutic from Products of Conception, Via Natural or Artificial Opening (ICD-10-PCS; 2019-02-04)
DX: O48.0 Post-term pregnancy (principal); O76 Abnormality in fetal heart rate and rhythm complicating labor and delivery; O77.0 Labor and delivery complicated by meconium in amniotic fluid; Z3A.41 41 weeks gestation of pregnancy; Z37.0 Single live birth